=== PATIENT | male | born 1945 | race Caucasian/White ===

== ENCOUNTER 2016-12-27 11:34 | Emergency (ER) | payer MEDICARE ==
[2016-12-27 11:45] VITALS: BP 108/75
--- NOTE | 2016-12-27 12:14 | UC ---
Complaint Male HPI - HPI Summary HPI Summary: Pt present with stating last pm had an episode of gross hematuria. Pt states later last evening his urine had "a few small clots" Since this time, no recurrence. Pt has been urinating without difficulty or discomfort. Pt is followed by urology for urinary retention and take flomax. Pt states this has been working week. Pt denies nausea, vomiting. No fevers, chills. no back. Pt denies pain in penis or testicles. Pt is on ASA - not other anticoagulants. Pt without concern, but daughter recommend he be evaluated. Pt has appt with urology next 01/03 Pt does take Motrin BID Pt did have a mechanical fall 1 week ago - landed forward. no back pain no ecchymosis Pt reports frequent microscopic hematuria Pt's medications reviewed at this visit. - History of Current Complaint Chief Complaint: UCGU Stated Complaint: URINARY COMPLAINT Time Seen by Provider: 12/27/16 11:51 Hx Obtained From: Patient Onset/Duration: Sudden Onset Timing: Lasting Seconds Severity Currently: None Pain Intensity: 0 Pain Scale Used: 0-10 Numeric Location: None Associated Signs And Symptoms: Positive: Negative - Allergies/Home Medications Allergies/Adverse Reactions: Allergies Allergy/AdvReac Type Severity Reaction Status Date / Time No Known Allergies Allergy Verified 12/27/16 11:46 Home Medications: Home Medications Aspirin EC Low Dose* [Ecotrin EC Low Dose 81 MG*] 81 mg PO DAILY 12/27/16 [ History Confirmed 12/27/16] Cetirizine* [ZyrTEC 10 MG TAB*] 10 mg PO DAILY 12/27/16 [History Confirmed 12/27] Gabapentin CAP(*) [Neurontin 100 mg CAP(*)] 1 tab PO DAILY 12/27/16 [History Confirmed 12/27/16] Omeprazole CAP* [Prilosec CAP* 20 MG] 20 mg PO DAILY 12/27/16 [History Confirmed 12/27/16] Simvastatin [Zocor 40 MG (NF)] 40 mg PO QPM 12/27/16 [History Confirmed 12/27/16 ] Tamsulosin CAP* [Flomax CAP*] 0.4 mg PO DAILY 12/27/16 [History Confirmed ] PMH/Surg Hx/FS Hx/Imm Hx Previously Healthy: Yes Cardiovascular History: Hypertension GI/ History: Other Other GI/ History: urinary retention Neurological History: Other - parethsesia feet Other Neurological History: paresthesia left foot - Surgical History Surgical History: Yes Surgery Procedure, Year, and Place: TONSILECTOMY, RT ROTATOR CUFF REPAIR 2-3 YRS AGO - Social History Occupation: Retired Lives: With Family Alcohol Use: None Substance Use Type: None Smoking Status (MU): Never Smoked Tobacco - Immunization History Most Recent Influenza Vaccination: 12/25/16 Review of Systems Constitutional: Negative Skin: Negative Eyes: Negative ENT: Negative Respiratory: Negative Cardiovascular: Negative Gastrointestinal: Negative Genitourinary: Hematuria Motor: Negative Neurovascular: Negative Musculoskeletal: Negative Neurological: Negative Psychological: Negative Is Patient Immunocompromised?: Yes All Other Systems Reviewed And Are Negative: Yes Physical Exam Triage Information Reviewed: Yes Appearance: Well-Appearing, No Pain Distress, Well-Nourished Vital Signs: Initial Vital Signs Temp 98.3 F 12/27/16 11:39 Pulse 74 12/27/16 11:39 Resp 16 12/27/16 11:39 BP 108/75 12/27/16 11:39 Pulse Ox 98 12/27/16 11:39 Vital Signs Reviewed: Yes Eye Exam: Normal Eyes: Positive: Conjunctiva Clear ENT Exam: Normal ENT: Positive: Normal ENT inspection, Hearing grossly normal, Pharynx normal, TMs normal Dental Exam: Normal Neck exam: Normal Neck: Positive: Supple, Nontender, No Lymphadenopathy Respiratory Exam: Normal Respiratory: Positive: Chest non-tender, Lungs clear, Normal breath sounds, No respiratory distress, No accessory muscle use Cardiovascular Exam: Normal Cardiovascular: Positive: RRR, No Murmur, Pulses Normal Abdominal Exam: Normal Abdomen Description: Positive: Nontender, No Organomegaly, Soft. Negative: CVA Tenderness (R), CVA Tenderness (L) Bowel Sounds: Positive: Present Musculoskeletal Exam: Normal Musculoskeletal: Positive: Strength Intact, ROM Intact, No Edema Neurological Exam: Normal Neurological: Positive: Alert, Muscle Tone Normal Psychological Exam: Normal Psychological: Positive: Normal Response To Family Skin: Positive: Other - no ecchymosis, abraisons, wounds Complaint Male Course/Dx - Course Course Of Treatment: I had a long discussion wit pt regarding gross hematuria without apparent infection - low suspicion for renal injury as > 1 week ago, fall forward, talya cchymosis and isolated episode of hematuria. will send urine for culture. expressed concern for pt for cystoscopy - pt has appt with urology next week. will send records there as well - pt sign release. return precautions discussed. Pt and spouse comfortable and in agreement with plan - Differential Dx/Diagnosis Provider Diagnoses: hematuria Discharge - Discharge Plan Condition: Stable Disposition: HOME Patient Education Materials: Hematuria (ED) Referrals: Chang Barnard MD [Primary Care Provider] - Additional Instructions: - Stay well hydrated. Drink plenty of non-alcoholic, non-caffinated beverages - If you develop pain with urination, fever, back pain, nausea, vomiting or any other concerns you should go to the nearest emergency department of call you urologist - Keep your appointment as scheduled with urology next week - your urine has been sent for additional testing -if you need antibiotics you will receive a call from a care steaming machine operator Contact your urologist or return with questions or concerns
== END 2016-12-27 12:52 | disposition home or self-care (01) ==
LOC: UCCORT 11:34
DX: R31.9 Hematuria, unspecified (principal); Z79.82 Long term (current) use of aspirin; I10 Essential (primary) hypertension; R20.9 Unspecified disturbances of skin sensation
CPT/HCPCS: 81003; 87086; 99211; G0463

== ENCOUNTER 2017-09-17 13:02 | Emergency (ER) | payer MEDICARE ==
[2017-09-17 13:30] VITALS: BP 106/52
--- NOTE | 2017-09-17 13:53 | UC ---
Skin Complaint HPI - HPI Summary HPI Summary: tick bite left thigh x 1 day no fever, no chills, no joint or body pain , no rash - History of Current Complaint Chief Complaint: UCSkin Time Seen by Provider: 09/17/17 13:38 Stated Complaint: SKIN COMPLAINT POSSIBLE TICK BITE Hx Obtained From: Patient Onset/Duration: Sudden Onset, Lasting Days - 1, Still Present Timing: Constant Onset Severity: Moderate Current Severity: Moderate Pain Intensity: 0 Location: Other - left thigh Aggravating Factor(s): Nothing Alleviating Factor(s): Nothing Associated Signs & Symptoms: Positive: Negative - Allergy/Home Medications Allergies/Adverse Reactions: Allergies Allergy/AdvReac Type Severity Reaction Status Date / Time No Known Allergies Allergy Verified 09/17/17 13:30 Home Medications: Home Medications Cholecalciferol (Vitamin D3) [Vitamin D3] 1,000 unit PO DAILY 09/17/17 [History Confirmed 09/17/17] Multivitamin [Multivitamins] 1 cap PO DAILY 09/17/17 [History Confirmed 09/17/17 ] Sulfamethox/Trimethoprim DS* [Bactrim DS 800/160 TAB*] 1 tab PO BID 09/17/17 [ History Confirmed 09/17/17] Review of Systems Constitutional: Negative Skin: Negative Eyes: Negative ENT: Negative Respiratory: Negative Cardiovascular: Negative Gastrointestinal: Negative Is Patient Immunocompromised?: No All Other Systems Reviewed And Are Negative: Yes PMH/Surg Hx/FS Hx/Imm Hx - Additional Past Medical History Additional PMH: high cholesterol, urinary retention - Surgical History Surgical History: Yes Surgery Procedure, Year, and Place: TONSILECTOMY, RT ROTATOR CUFF REPAIR about 2009 Dr. Poole, [facility] - Family History Known Family History: Negative: Diabetes - Social History Alcohol Use: None Substance Use Type: None Smoking Status (MU): Never Smoked Tobacco - Immunization History Most Recent Influenza Vaccination: 12/25/16 Most Recent Tetanus Shot: unknown Physical Exam Triage Information Reviewed: Yes Appearance: Well-Appearing, No Pain Distress, Well-Nourished Vital Signs: Initial Vital Signs Temp 98 F 09/17/17 13:16 Pulse 70 09/17/17 13:16 Resp 18 09/17/17 13:16 BP 106/52 09/17/17 13:16 Pulse Ox 98 09/17/17 13:16 Vital Signs Reviewed: Yes Eyes: Positive: Conjunctiva Clear ENT: Positive: Normal ENT inspection, Hearing grossly normal, Pharynx normal Respiratory: Positive: Chest non-tender, Lungs clear, Normal breath sounds Cardiovascular: Positive: RRR, No Murmur, Pulses Normal Skin: Positive: Other - tick was removed from the left thigh using the tick twister Course/Dx - Diagnoses Provider Diagnoses: tick bite left thigh Discharge - Sign-Out/Discharge Documenting (check all that apply): Discharge/Admit/Transfer - Discharge Plan Condition: Stable Disposition: HOME Prescriptions: DOXYcycline CAP(*) [DOXYcycline 100MG CAP(*)] 200 mg PO DAILY #2 cap Patient Education Materials: Tick Bite (ED) Referrals: Chang Barnard MD [Primary Care Provider] - If Needed - Billing Disposition and Condition Condition: STABLE Disposition: HOME
== END 2017-09-17 13:57 | disposition home or self-care (01) ==
LOC: UCCORT 13:02
DX: S70.362A Insect bite (nonvenomous), left thigh, initial encounter (principal); W57.XXXA Bitten or stung by nonvenomous insect and other nonvenomous arthropods, initial encounter; Y92.9 Unspecified place or not applicable; E78.00 Pure hypercholesterolemia, unspecified; R33.9 Retention of urine, unspecified
CPT/HCPCS: 99212; G0463

== ENCOUNTER 2019-06-06 20:00 | Emergency (ER) | payer MEDICARE ==
[2019-06-06 20:21] VITALS: BP 121/33
--- NOTE | 2019-06-06 20:27 | UC ---
Skin Complaint HPI - HPI Summary HPI Summary: 74 year old male presents Rash left shoulder, upper chest and neck x 2-3 days. Denies pain with rash. - History of Current Complaint Chief Complaint: UCRash Time Seen by Provider: 06/06/19 20:24 Stated Complaint: RED SPOTS LEFT SHOULDER Onset/Duration: Sudden Onset - 2-3 days Pain Intensity: 0 - Allergy/Home Medications Allergies/Adverse Reactions: Allergies Allergy/AdvReac Type Severity Reaction Status Date / Time No Known Allergies Allergy Verified 06/06/19 20:07 Home Medications: Home Medications Ammonium Lactate 12% [Lac-Hydrin 12 %] 140 gm TP DAILY 06/06/19 [History Confirmed 06/06/19] Neomycin/Bacitracin/Polymyxinb [Antibiotic Ointment] 28 gm TP BEDTIME 06/06/19 [ History Confirmed 06/06/19] PMH/Surg Hx/FS Hx/Imm Hx Previously Healthy: Yes Endocrine History: Dyslipidemia Other GI/ History: BPH, self caths - Surgical History Surgical History: Yes Surgery Procedure, Year, and Place: TONSILECTOMY, RT ROTATOR CUFF REPAIR about [address] Dr[address] Poole, [facility] - Family History Known Family History: Negative: Diabetes - Social History Alcohol Use: None Substance Use Type: None Smoking Status (MU): Never Smoked Tobacco - Immunization History Most Recent Influenza Vaccination: 12/25/16 Most Recent Tetanus Shot: unknown Review of Systems All Other Systems Reviewed And Are Negative: Yes Constitutional: Positive: Negative Skin: Positive: Rash - as noted in CC. Eyes: Positive: Negative ENT: Positive: Negative Respiratory: Positive: Negative Cardiovascular: Positive: Negative Gastrointestinal: Positive: Negative Genitourinary: Positive: Negative Motor: Positive: Negative Neurovascular: Positive: Negative Musculoskeletal: Positive: Negative Neurological/Mental Status: Positive: Negative Psychological: Positive: Negative Is Patient Immunocompromised?: No Physical Exam Triage Information Reviewed: Yes Appearance: Well-Appearing, No Pain Distress Vital Signs: Initial Vital Signs Temp 98.9 F 06/06/19 20:14 Pulse 68 06/06/19 20:14 Resp 20 06/06/19 20:14 BP 121/33 06/06/19 20:14 Pulse Ox 100 06/06/19 20:14 Eye Exam: Normal ENT Exam: Normal Neck: Positive: Supple, Nontender, No Lymphadenopathy Respiratory: Positive: Lungs clear, Normal breath sounds. Negative: Crackles, Rhonchi, Wheezing Cardiovascular: Positive: RRR, No Murmur Abdomen Description: Positive: Nontender, Soft Musculoskeletal Exam: Normal Neurological Exam: Normal Psychological Exam: Normal Skin: Positive: Rashes - vessicular rash on erythematous base left shoulder neck and upper chest consistent with herpes zoster. Course/Dx - Course Course Of Treatment: A single dose of acyclovir 800mg was given here tonight since the pharmacy is closed. He will continue with valacyclovir tomorrow for 1000mg tid x 7 days (he has normal kidney function per patient and ). - Diagnoses Provider Diagnosis: Herpes zoster Discharge ED - Sign-Out/Discharge Documenting (check all that apply): Patient Departure All imaging exams completed and their final reports reviewed: No Studies - Discharge Plan Condition: Stable Disposition: HOME Prescriptions: ValACYclovir (*) [Valtrex 1 GM(*)] 1 gm PO Q8H 7 Days #21 tab Patient Education Materials: Shingles (ED) Referrals: Anshu Quintanilla MD [Primary Care Provider] - Additional Instructions: Take antiviral medication as prescribed and Tylenol as needed for pain. - Billing Disposition and Condition Condition: STABLE Disposition: Home
[2019-06-06] MEDS ORDERED: Acyclovir* 200 MG CAP PO ONE (20:36)
== END 2019-06-06 20:55 | disposition home or self-care (01) ==
LOC: UCCORT 20:00
DX: B02.9 Zoster without complications (principal)
CPT/HCPCS: 99212; A9270-GY; G0463